=== PATIENT | female | born 1945 | race Caucasian/White ===

== ENCOUNTER 2016-09-12 11:31 | Outpatient (CLI) | payer MEDICARE ==
[2016-09-12 11:53] LABS: Prothrombin Time 18.6 SEC (12.0-14.7)
== END 2016-09-12 11:32 | disposition home or self-care (01) ==
LOC: BURLAB 11:31
PROVIDERS: ATTEND Nurse Practitioner
DX: I48.91 Unspecified atrial fibrillation (principal)
CPT/HCPCS: 36415; 85610

== ENCOUNTER 2016-10-10 11:16 | Outpatient (CLI) | payer MEDICARE ==
[2016-10-10 11:42] LABS: Prothrombin Time 17.6 SEC (12.0-14.7)
== END 2016-10-10 11:17 | disposition home or self-care (01) ==
LOC: BURLAB 11:16
PROVIDERS: ATTEND Nurse Practitioner
DX: I48.91 Unspecified atrial fibrillation (principal)
CPT/HCPCS: 36415; 85610

== ENCOUNTER 2016-10-24 12:47 | Outpatient (CLI) | payer MEDICARE ==
[2016-10-24 13:08] LABS: Prothrombin Time 20.4 SEC (12.0-14.7)
== END 2016-10-24 12:48 | disposition home or self-care (01) ==
LOC: BURLAB 12:47
PROVIDERS: ATTEND Nurse Practitioner
DX: I48.91 Unspecified atrial fibrillation (principal)
CPT/HCPCS: 36415; 85610